=== PATIENT | male | born 1955 | race Caucasian/White ===

== ENCOUNTER 2024-07-06 00:35 | Inpatient (IN) | payer MEDICARE, MEDICAID ==
[~2024-07-06] VITALS: Ht 165.1 cm; Wt 54.4 kg
[2024-07-06 00:37] VITALS: BP_SYST 135; PULSE 69; RESP 19; TEMP 96.9; O2SAT 94
[2024-07-06] MEDS: MORPHINE 4 MG INJ. 4 MG/ML VIAL IVP ONE ×2 (00:57→03:39)
[2024-07-06] MEDS: ONDANSETRON HCL 4 MG/2 ML VIAL IVP ONE (00:58)
[2024-07-06] MEDS: ASPIRIN 325 MG TABLET PO ONE (01:18)
[2024-07-06 01:36] LABS: BASOPHILS # (AUTO) 0.4 K/uL (0.0-0.2); BASOPHILS % (AUTO) 3.4 % (0.0-2.0); EOSINOPHILS # (AUTO) 0.5 K/uL (0.0-0.4); HEMOGLOBIN 15.2 g/dL (14.0-18.0); LYMPHOCYTES # (AUTO) 1.5 K/uL (1.0-5.5); LYMPHOCYTES % (AUTO) 12.6 % (20.5-51.5); MEAN CORPUSCULAR HEMOGLOBIN 32 pg (27-31); MEAN CORPUSCULAR HGB CONC 35 % (32-36); MEAN CORPUSCULAR VOLUME 92 fL (79.0-98.0); MONOCYTES # (AUTO) 0.4 K/uL (0.0-1.0); MONOCYTES % (AUTO) 3.1 % (1.7-9.3); NEUTROPHILS # (AUTO) 9.4 K/uL (1.8-7.7); NEUTROPHILS % (AUTO) 76.9 % (40.0-70.0); PLATELET COUNT (AUTO) 225 K/uL (130-430); RED BLOOD CELL COUNT(AUTO) 4.77 MIL/uL (4.2-6.2); WHITE BLOOD COUNT (AUTO) 12.2 K/uL (4.8-10.8)
[2024-07-06 01:43] LABS: PROTHROMBIN TIME 10.3 SECS (9.5-12.5)
[2024-07-06 01:47] LABS: ANION GAP 9 (5-15); CALCIUM 8.4 mg/dL (8.4-11.0); CARBON DIOXIDE 25 mmol/L (23-29); CHLORIDE 109 mmol/L (98-107); CREATININE 1.02 mg/dL (0.55-1.30); GFR AFRICAN AMERICAN 93 mL/min (>90); GLUCOSE 148 mg/dL (74-106); SODIUM SERUM 143 mmol/L (136-145); UREA NITROGEN, BLOOD 13 mg/dL (8-21)
[2024-07-06 01:53] LABS: GFR NON AFRICAN-AMERICAN 77 mL/min (>90)
[2024-07-06 01:55] LABS: POTASSIUM 2.6 mmol/L (3.5-5.1)
[2024-07-06 02:12] LABS: ALBUMIN 3.5 g/dL (3.4-4.8); BILIRUBIN,DIRECT 0.1 mg/dL (0.0-0.3); TOTAL BILIRUBIN 0.3 mg/dL (0.0-1.0); TOTAL PROTEIN, SERUM 7.1 g/dL (6.4-8.3)
[2024-07-06] MEDS ORDERED: iohexoL 350 mgI/mL, 100 ML INFUS..BTL IV ONE (02:15)
[2024-07-06] MEDS ORDERED: POTASSIUM CHLORIDE 40 MEQ in NS 250 ML IV ONE (02:15)
[2024-07-06] MEDS: NACL 0.9% 1,000 ML IV ONE (02:19)
[2024-07-06] MEDS: FAMOTIDINE PF 20 MG/2 ML VIAL IVP ONE (02:19)
[2024-07-06] MEDS: MAGNESIUM SULFATE 50 ML IV ONE (02:20)
[2024-07-06] MEDS ORDERED: KCL 20 mEq in 100 mL (PREMIX) 200 ML IV ONE (03:10)
[2024-07-06] MEDS: KCL 20 mEq in 100 mL (PREMIX) 100 ML IV ONE ×2 (03:33→05:15)
[2024-07-06] MEDS ORDERED: cefTRIAXone 1 GM VIAL IM ONE (04:45)
[2024-07-06] MEDS ORDERED: AZITHROMYCIN 500 MG/VIAL (ZITHROMAX) IV ONE (05:11)
[2024-07-06] MEDS: cefTRIAXone 1 GM in D5W 50 ML IV ONE (05:11)
[2024-07-06] MEDS: AZITHROMYCIN 500 MG in NS 250 ML IV ONE (05:12)
[2024-07-06] MEDS: PANTOPRAZOLE SODIUM 40 MG/VIAL (PROTONIX) IVP ONE (06:57)
[2024-07-06] MEDS: ONDANSETRON HCL 4 MG/2 ML VIAL IVP PRN (06:57)
[2024-07-06] MEDS: MORPHINE 4 MG INJ. 4 MG/ML VIAL IVP PRN (06:57)
[2024-07-06 07:15] LABS: BILIRUBIN,URINE NEGATIVE (NEGATIVE); BLOOD, URINE NEGATIVE (NEGATIVE); CLARITY/URINE CLEAR (CLEAR); COLOR,URINE YELLOW (YELLOW); GLUCOSE,URINE NEGATIVE (NEGATIVE); KETONES,URINE NEGATIVE (NEGATIVE); LEUKOCYTE ESTERASE ,URINE NEGATIVE (NEGATIVE); NITRITE, URINE POSITIVE (NEGATIVE); PH,URINE 7.5 (5.0-8.0); PROTEIN URINE NEGATIVE (NEGATIVE); UROBILINOGEN,URINE 0.2 (0.2-1.0)
[2024-07-06] MEDS ORDERED: AMLO10TA88 PO (07:49)
[2024-07-06] MEDS ORDERED: CLOP75TA32 PO (07:49)
[2024-07-06] MEDS ORDERED: TAMS0.4C96 PO (07:49)
[2024-07-06] MEDS ORDERED: FINA5TAB11 PO (07:49)
[2024-07-06 08:44] LABS: BACTERIA,URINE FEW /HPF (None Seen); MUCUS,URINE 1+ /LPF (None Seen); RBC,URINE 0-3 /HPF (0-3); WBC,URINE 0-3 /HPF (0-3)
[2024-07-06] MEDS: PANTOPRAZOLE SODIUM 40 MG/VIAL (PROTONIX) IVP SCH (09:25)
[2024-07-06 10:59] LABS: ALBUMIN 3.6 g/dL (3.4-4.8); CALCIUM 8.9 mg/dL (8.4-11.0); CREATININE 0.92 mg/dL (0.55-1.30); POTASSIUM 3.5 mmol/L (3.5-5.1); TOTAL BILIRUBIN 0.5 mg/dL (0.0-1.0); TOTAL PROTEIN, SERUM 7.4 g/dL (6.4-8.3)
[2024-07-06 11:00] VITALS: BP_SYST 133; PULSE 72; RESP 18; TEMP 98.4; O2SAT 98
[2024-07-06] MEDS: FINASTERIDE 5 MG TABLET (PROSCAR) PO ONE (11:30)
[2024-07-06 11:53] VITALS: BP_SYST 142; PULSE 81; RESP 18; TEMP 98.4
[2024-07-06] MEDS ORDERED: MILK OF MAGNESIA 30 ML UDC PO PRN (12:15)
[2024-07-06] MEDS: LR 500 ML IV ONE (12:15)
[2024-07-06] MEDS: SIMETHICONE 80 MG TAB.CHEW PO SCH (14:08)
[2024-07-06] MEDS: DOCUSATE SODIUM 250 MG CAPSULE PO ONE (14:08)
[2024-07-06] MEDS: TAMSULOSIN HCL 0.4 MG CAP PO ONE (14:08)
[2024-07-06] MEDS: amLODIPine BESYLATE 10 MG TABLET PO ONE (14:08)
[2024-07-06] MEDS: CLOPIDOGREL BISULFATE 75 MG TABLET PO ONE (14:08)
[2024-07-06] MEDS: MILK OF MAGNESIA 30 ML UDC PO ONE (14:09)
[2024-07-06] MEDS: ENOXAPARIN SODIUM 40 MG/0.4 ML SYRINGE SUBCUT ONE (14:11)
[2024-07-06 15:10] VITALS: BP_SYST 136; PULSE 69; RESP 16; TEMP 98.1; O2SAT 94
[2024-07-06] MEDS ORDERED: NALOXONE HCL 0.4 MG/ML AMP (NARCAN) IVP PRN ×2 (18:00→18:15)
[2024-07-06] MEDS: HYDROmorphone 1 MG/ML INJ. CARTRIDGE IM PRN (18:13)
[2024-07-06 20:00] VITALS: BP_SYST 144; PULSE 73; RESP 18; TEMP 98.8; O2SAT 92; O2SAT 95
[2024-07-06] MEDS: FAMOTIDINE 20 MG TABLET PO SCH (20:51)
[2024-07-06] MEDS: DOCUSATE SODIUM 250 MG CAPSULE PO SCH (20:51)
[2024-07-06] MEDS: HYDROmorphone 1 MG/ML INJ. CARTRIDGE IVP PRN (22:46)
[2024-07-07 00:05] VITALS: BP_SYST 137; PULSE 73; RESP 18; TEMP 98.4; O2SAT 92; O2SAT 94
[2024-07-07 06:48] LABS: BASOPHILS % (AUTO) 0.2 % (0.0-2.0); EOSINOPHILS # (AUTO) 0.2 K/uL (0.0-0.4); HEMATOCRIT 46.8 % (36-54); HEMOGLOBIN 15.6 g/dL (14.0-18.0); LYMPHOCYTES # (AUTO) 1.1 K/uL (1.0-5.5); LYMPHOCYTES % (AUTO) 6.9 % (20.5-51.5); MEAN CORPUSCULAR HEMOGLOBIN 31 pg (27-31); MEAN CORPUSCULAR HGB CONC 33 % (32-36); MEAN CORPUSCULAR VOLUME 94 fL (79.0-98.0); MONOCYTES # (AUTO) 1.1 K/uL (0.0-1.0); MONOCYTES % (AUTO) 7.1 % (1.7-9.3); NEUTROPHILS # (AUTO) 13.5 K/uL (1.8-7.7); NEUTROPHILS % (AUTO) 84.8 % (40.0-70.0); PLATELET COUNT (AUTO) 205 K/uL (130-430); RED BLOOD CELL COUNT(AUTO) 4.97 MIL/uL (4.2-6.2); RED CELL DISTRIBUTION WIDTH 13.7 % (9.0-15.0); WHITE BLOOD COUNT (AUTO) 15.9 K/uL (4.8-10.8)
[2024-07-07 07:00] VITALS: O2SAT 96
[2024-07-07 08:00] VITALS: BP_SYST 140; PULSE 98; RESP 18; TEMP 98.6; O2SAT 98
[2024-07-07 08:07] LABS: ALBUMIN 2.8 g/dL (3.4-4.8); CALCIUM 8.8 mg/dL (8.4-11.0); CREATININE 0.93 mg/dL (0.55-1.30); FREE T4 (FREE THYROXINE) 1.2 ng/dl (0.8-1.5); POTASSIUM 3.3 mmol/L (3.5-5.1); THYROID STIMULATING HORMONE 0.76 uIu/mL (0.36-3.74); TOTAL BILIRUBIN 1.1 mg/dL (0.0-1.0); TOTAL PROTEIN, SERUM 6.3 g/dL (6.4-8.3)
[2024-07-07] MEDS: ENOXAPARIN SODIUM 40 MG/0.4 ML SYRINGE SUBCUT SCH (10:28)
[2024-07-07] MEDS: TAMSULOSIN HCL 0.4 MG CAP PO SCH (10:29)
[2024-07-07] MEDS: CLOPIDOGREL BISULFATE 75 MG TABLET PO SCH (10:29)
[2024-07-07] MEDS: FINASTERIDE 5 MG TABLET (PROSCAR) PO SCH (10:31)
[2024-07-07] MEDS: amLODIPine BESYLATE 10 MG TABLET PO SCH (10:33)
[2024-07-07 12:50] VITALS: BP_SYST 107; PULSE 68; RESP 18; TEMP 100.1; O2SAT 95
[2024-07-07 16:39] VITALS: BP_SYST 108; PULSE 82; RESP 18; TEMP 99.1; O2SAT 94
[2024-07-07] MEDS ORDERED: NALOXONE HCL 0.4 MG/ML AMP (NARCAN) IVP PRN (18:00)
[2024-07-07] MEDS ORDERED: POTASSIUM CHLORIDE 20 MEQ TABLET.ER PO ONE (18:15)
[2024-07-07] MEDS: PIPERACILLIN/TAZO 3.375 GM in D5W 50 ML IV ONE (18:23)
[2024-07-07] MEDS: POTASSIUM CHLORIDE 20 MEQ TABLET.ER PO ONE (19:41)
[2024-07-07 20:00] VITALS: BP_SYST 114; PULSE 74; RESP 18; TEMP 98.6; O2SAT 95
[2024-07-08] VITALS (7 sets, daily range): BP systolic 107–124; PULSE 74–103; RESP 18; TEMP 98.6–101.1; O2SAT 92–95
[2024-07-08] MEDS: PIPERACILLIN/TAZO 3.375 GM in D5W 50 ML IV SCH (00:20)
[2024-07-08 07:41] LABS: BASOPHILS % (AUTO) 0.2 % (0.0-2.0); EOSINOPHILS # (AUTO) 0.4 K/uL (0.0-0.4); EOSINOPHILS % (AUTO) 2.7 % (0.0-4.0); HEMATOCRIT 44.5 % (36-54); LYMPHOCYTES # (AUTO) 0.9 K/uL (1.0-5.5); LYMPHOCYTES % (AUTO) 5.9 % (20.5-51.5); MEAN CORPUSCULAR HEMOGLOBIN 31 pg (27-31); MEAN CORPUSCULAR HGB CONC 34 % (32-36); MEAN CORPUSCULAR VOLUME 93 fL (79.0-98.0); MONOCYTES # (AUTO) 1.2 K/uL (0.0-1.0); MONOCYTES % (AUTO) 7.7 % (1.7-9.3); NEUTROPHILS # (AUTO) 12.8 K/uL (1.8-7.7); NEUTROPHILS % (AUTO) 83.5 % (40.0-70.0); PLATELET COUNT (AUTO) 209 K/uL (130-430); RED BLOOD CELL COUNT(AUTO) 4.78 MIL/uL (4.2-6.2); RED CELL DISTRIBUTION WIDTH 13.5 % (9.0-15.0); WHITE BLOOD COUNT (AUTO) 15.4 K/uL (4.8-10.8)
[2024-07-08 07:44] LABS: ALBUMIN 2.6 g/dL (3.4-4.8); CREATININE 1.13 mg/dL (0.55-1.30); POTASSIUM 3.5 mmol/L (3.5-5.1); TOTAL BILIRUBIN 1.8 mg/dL (0.0-1.0); TOTAL PROTEIN, SERUM 6.2 g/dL (6.4-8.3)
[2024-07-08] MEDS: HYDROcodone/ACETAMIN 5-325 MG TAB (NORCO/ VICODIN) PO PRN (19:30)
[2024-07-09 00:05] VITALS: BP_SYST 107; PULSE 64; RESP 18; TEMP 99; O2SAT 92
[2024-07-09 08:00] VITALS: BP_SYST 123; PULSE 92; RESP 14; TEMP 99.3; O2SAT 93; O2SAT 97
[2024-07-09 12:39] VITALS: BP_SYST 113; PULSE 95; RESP 18; TEMP 100.8; O2SAT 94
[2024-07-09 16:51] VITALS: BP_SYST 99; PULSE 90; RESP 16; O2SAT 94
[2024-07-09 20:00] VITALS: BP_SYST 119; PULSE 86; RESP 16; TEMP 99.8; O2SAT 95
[2024-07-09] MEDS: guaiFENesin/DEXTROMETHORPHAN 10 ML UDC PO PRN (23:55)
[2024-07-10] VITALS (8 sets, daily range): BP systolic 99–130; PULSE 68–90; RESP 16–20; TEMP 96.6–99.5; O2SAT 80–99
[2024-07-10 08:03] LABS: ALBUMIN 2.1 g/dL (3.4-4.8); CALCIUM 8.5 mg/dL (8.4-11.0); CREATININE 0.95 mg/dL (0.55-1.30); POTASSIUM 3.3 mmol/L (3.5-5.1); TOTAL BILIRUBIN 1.2 mg/dL (0.0-1.0); TOTAL PROTEIN, SERUM 6.3 g/dL (6.4-8.3)
[2024-07-10 08:48] LABS: HEMOGLOBIN 13.9 g/dL (14.0-18.0); WHITE BLOOD COUNT (AUTO) 14.3 K/uL (4.8-10.8)
[2024-07-10 08:51] LABS: BASOPHILS % (AUTO) 0.1 % (0.0-2.0); EOSINOPHILS # (AUTO) 0.5 K/uL (0.0-0.4); EOSINOPHILS % (AUTO) 3.3 % (0.0-4.0); HEMATOCRIT 41.3 % (36-54); LYMPHOCYTES # (AUTO) 1.4 K/uL (1.0-5.5); MEAN CORPUSCULAR HEMOGLOBIN 31 pg (27-31); MEAN CORPUSCULAR HGB CONC 34 % (32-36); MEAN CORPUSCULAR VOLUME 94 fL (79.0-98.0); MONOCYTES # (AUTO) 1.1 K/uL (0.0-1.0); MONOCYTES % (AUTO) 7.8 % (1.7-9.3); NEUTROPHILS # (AUTO) 11.3 K/uL (1.8-7.7); NEUTROPHILS % (AUTO) 78.8 % (40.0-70.0); PLATELET COUNT (AUTO) 252 K/uL (130-430); RED BLOOD CELL COUNT(AUTO) 4.42 MIL/uL (4.2-6.2); RED CELL DISTRIBUTION WIDTH 13.9 % (9.0-15.0)
[2024-07-10] MEDS: IPRATROPIUM/ALBUTEROL SULFATE 3 ML AMPUL.NEB (DUONEB) INH PRN (10:07)
[2024-07-10] MEDS: POTASSIUM CHLORIDE 20 MEQ TABLET.ER PO ONE (13:42)
[2024-07-10] MEDS: IPRATROPIUM/ALBUTEROL SULFATE 3 ML AMPUL.NEB (DUONEB) ONE (16:43)
[2024-07-10] MEDS ORDERED: IPRATROPIUM/ALBUTEROL SULFATE 3 ML AMPUL.NEB (DUONEB) INH PRN (16:45)
[2024-07-10] MEDS: IPRATROPIUM/ALBUTEROL SULFATE 3 ML AMPUL.NEB (DUONEB) INH SCH (19:52)
[2024-07-11] VITALS (9 sets, daily range): BP systolic 99–121; PULSE 64–97; RESP 16–19; TEMP 97.8–99.8; O2SAT 92–95
[2024-07-11 08:01] LABS: CALCIUM 8.4 mg/dL (8.4-11.0); CREATININE 1.01 mg/dL (0.55-1.30); POTASSIUM 3.4 mmol/L (3.5-5.1); TOTAL BILIRUBIN 0.6 mg/dL (0.0-1.0); TOTAL PROTEIN, SERUM 6.2 g/dL (6.4-8.3)
[2024-07-11 08:14] LABS: BASOPHILS % (AUTO) 0.1 % (0.0-2.0); HEMATOCRIT 37.7 % (36-54); HEMOGLOBIN 12.7 g/dL (14.0-18.0); LYMPHOCYTES # (AUTO) 1.4 K/uL (1.0-5.5); LYMPHOCYTES % (AUTO) 9.8 % (20.5-51.5); MONOCYTES # (AUTO) 1.3 K/uL (0.0-1.0); RED BLOOD CELL COUNT(AUTO) 4.05 MIL/uL (4.2-6.2); RED CELL DISTRIBUTION WIDTH 13.9 % (9.0-15.0)
[2024-07-11 08:17] LABS: EOSINOPHILS # (AUTO) 0.3 K/uL (0.0-0.4); EOSINOPHILS % (AUTO) 2.3 % (0.0-4.0); MEAN CORPUSCULAR HEMOGLOBIN 32 pg (27-31); MEAN CORPUSCULAR HGB CONC 34 % (32-36); MEAN CORPUSCULAR VOLUME 93 fL (79.0-98.0); MONOCYTES % (AUTO) 9.4 % (1.7-9.3); NEUTROPHILS # (AUTO) 11.1 K/uL (1.8-7.7); NEUTROPHILS % (AUTO) 78.4 % (40.0-70.0); PLATELET COUNT (AUTO) 277 K/uL (130-430); WHITE BLOOD COUNT (AUTO) 14.2 K/uL (4.8-10.8)
[2024-07-11] MEDS: POTASSIUM CHLORIDE 20 MEQ TABLET.ER PO SCH (08:43)
[2024-07-11] MEDS: POTASSIUM CHLORIDE 20 MEQ TABLET.ER PO ONE (14:07)
[2024-07-11] MEDS ORDERED: ONDANSETRON HCL 4 MG/2 ML VIAL IM PRN (17:30)
[2024-07-12] VITALS (7 sets, daily range): BP systolic 102–117; PULSE 69–101; RESP 16–17; TEMP 97–99.2; O2SAT 93–100
[2024-07-12 07:06] LABS: BASOPHILS % (AUTO) 0.2 % (0.0-2.0); EOSINOPHILS # (AUTO) 0.5 K/uL (0.0-0.4); EOSINOPHILS % (AUTO) 3.4 % (0.0-4.0); HEMATOCRIT 39.6 % (36-54); HEMOGLOBIN 13.1 g/dL (14.0-18.0); LYMPHOCYTES # (AUTO) 1.7 K/uL (1.0-5.5); LYMPHOCYTES % (AUTO) 12.1 % (20.5-51.5); MEAN CORPUSCULAR HEMOGLOBIN 31 pg (27-31); MEAN CORPUSCULAR HGB CONC 33 % (32-36); MEAN CORPUSCULAR VOLUME 94 fL (79.0-98.0); MONOCYTES # (AUTO) 1.2 K/uL (0.0-1.0); MONOCYTES % (AUTO) 8.5 % (1.7-9.3); NEUTROPHILS # (AUTO) 10.5 K/uL (1.8-7.7); NEUTROPHILS % (AUTO) 75.8 % (40.0-70.0); PLATELET COUNT (AUTO) 301 K/uL (130-430); RED BLOOD CELL COUNT(AUTO) 4.23 MIL/uL (4.2-6.2); RED CELL DISTRIBUTION WIDTH 14.5 % (9.0-15.0); WHITE BLOOD COUNT (AUTO) 13.8 K/uL (4.8-10.8)
[2024-07-12 07:53] LABS: ALBUMIN 2.1 g/dL (3.4-4.8); CALCIUM 8.4 mg/dL (8.4-11.0); CREATININE 0.93 mg/dL (0.55-1.30); TOTAL BILIRUBIN 0.6 mg/dL (0.0-1.0); TOTAL PROTEIN, SERUM 6.4 g/dL (6.4-8.3)
[2024-07-12] MEDS: COMMUNICATION ORDER XX ONE (20:00)
[2024-07-13] VITALS (9 sets, daily range): BP systolic 105–117; PULSE 64–85; RESP 16–20; TEMP 97–101.4; O2SAT 94–98
[2024-07-13] MEDS: ACETAMINOPHEN 325 MG TABLET PO PRN (14:57)
[2024-07-14] VITALS (9 sets, daily range): BP systolic 108–125; PULSE 85–96; RESP 16–20; TEMP 97.4–98.1; O2SAT 95–96
[2024-07-14] MEDS: ACETAMINOPHEN 325 MG TABLET PO PRN (01:13)
[2024-07-14 07:29] LABS: BASOPHILS % (AUTO) 0.4 % (0.0-2.0); EOSINOPHILS # (AUTO) 0.2 K/uL (0.0-0.4); HEMATOCRIT 41.8 % (36-54); LYMPHOCYTES # (AUTO) 0.7 K/uL (1.0-5.5); LYMPHOCYTES % (AUTO) 8.7 % (20.5-51.5); MEAN CORPUSCULAR HEMOGLOBIN 31 pg (27-31); MEAN CORPUSCULAR HGB CONC 33 % (32-36); MEAN CORPUSCULAR VOLUME 94 fL (79.0-98.0); MONOCYTES % (AUTO) 13.8 % (1.7-9.3); NEUTROPHILS # (AUTO) 5.6 K/uL (1.8-7.7); NEUTROPHILS % (AUTO) 74.1 % (40.0-70.0); PLATELET COUNT (AUTO) 350 K/uL (130-430); RED BLOOD CELL COUNT(AUTO) 4.46 MIL/uL (4.2-6.2); RED CELL DISTRIBUTION WIDTH 14.4 % (9.0-15.0); WHITE BLOOD COUNT (AUTO) 7.5 K/uL (4.8-10.8)
[2024-07-14 08:26] LABS: ALBUMIN 2.2 g/dL (3.4-4.8); CALCIUM 8.4 mg/dL (8.4-11.0); CREATININE 0.99 mg/dL (0.55-1.30); TOTAL BILIRUBIN 0.3 mg/dL (0.0-1.0); TOTAL PROTEIN, SERUM 6.7 g/dL (6.4-8.3)
[2024-07-14 13:28] LABS: INR 1.1 (0.80-1.20); PROTHROMBIN TIME 11.4 SECS (9.5-12.5)
[2024-07-15] VITALS (8 sets, daily range): BP systolic 108–139; PULSE 85–96; RESP 16–18; TEMP 97.2–98.4; O2SAT 95–99
[2024-07-15 07:49] LABS: BASOPHILS % (AUTO) 0.3 % (0.0-2.0); EOSINOPHILS # (AUTO) 0.3 K/uL (0.0-0.4); EOSINOPHILS % (AUTO) 5.8 % (0.0-4.0); HEMATOCRIT 43.3 % (36-54); HEMOGLOBIN 14.4 g/dL (14.0-18.0); LYMPHOCYTES # (AUTO) 1.4 K/uL (1.0-5.5); LYMPHOCYTES % (AUTO) 23.2 % (20.5-51.5); MEAN CORPUSCULAR HEMOGLOBIN 31 pg (27-31); MEAN CORPUSCULAR HGB CONC 33 % (32-36); MEAN CORPUSCULAR VOLUME 94 fL (79.0-98.0); MONOCYTES # (AUTO) 0.7 K/uL (0.0-1.0); MONOCYTES % (AUTO) 12.5 % (1.7-9.3); NEUTROPHILS # (AUTO) 3.5 K/uL (1.8-7.7); NEUTROPHILS % (AUTO) 58.2 % (40.0-70.0); PLATELET COUNT (AUTO) 379 K/uL (130-430); RED BLOOD CELL COUNT(AUTO) 4.61 MIL/uL (4.2-6.2); RED CELL DISTRIBUTION WIDTH 14.4 % (9.0-15.0); WHITE BLOOD COUNT (AUTO) 5.9 K/uL (4.8-10.8)
[2024-07-15 08:07] LABS: ALBUMIN 2.3 g/dL (3.4-4.8); CALCIUM 8.5 mg/dL (8.4-11.0); CREATININE 0.99 mg/dL (0.55-1.30); POTASSIUM 3.8 mmol/L (3.5-5.1); TOTAL BILIRUBIN 0.3 mg/dL (0.0-1.0); TOTAL PROTEIN, SERUM 6.9 g/dL (6.4-8.3)
[2024-07-15] MEDS ORDERED: iohexoL 240 mgI/mL, 50 ML INFUS..BTL IV ONE (08:44)
[2024-07-15] MEDS ORDERED: NS 1000 ML IV.SOLN IV ONE (09:30)
[2024-07-15] MEDS ORDERED: ROCURONIUM BROMIDE 10 MG/ML (ZEMURON) ONE (09:30)
[2024-07-15] MEDS ORDERED: LIDOCAINE MPF 2% 20 MG/1 ML, 5 ML VIAL INH ONE (09:30)
[2024-07-15] MEDS ORDERED: METOCLOPRAMIDE HCL 10 MG/2 ML VIAL ONE (09:30)
[2024-07-15] MEDS ORDERED: NS IRRIG SOLN 1000 ML IR ONE (09:30)
[2024-07-15] MEDS ORDERED: BUPIVACAINE /PF 0.25% 30 ML VIAL INJ ONE (09:30)
[2024-07-15] MEDS ORDERED: WATER FOR IRRIGATION,STERILE 1,000 ML IRRIG.SOLN IR ONE (09:30)
[2024-07-15] MEDS ORDERED: GLYCOPYRROLATE 0.2 MG/ML VIAL ONE (09:30)
[2024-07-15] MEDS ORDERED: SEVOFLURANE 15 MIN GAS INH ONE (09:30)
[2024-07-15] MEDS ORDERED: NEOSTIGMINE METHYLSULFATE 1 MG/ML, 10 ML VIAL ONE (09:30)
[2024-07-15] MEDS ORDERED: PROPOFOL 200MG/ 20ML VIAL (DIPRIVAN) IV ONE (09:30)
[2024-07-15] MEDS ORDERED: ONDANSETRON HCL 4 MG/2 ML VIAL ONE (09:30)
[2024-07-15] MEDS: fentaNYL CITRATE/PF 100 MCG/2 ML AMP ONE (09:37)
[2024-07-15] MEDS: MIDAZOLAM HCL 2 MG/2 ML VIAL (VERSED) ONE (09:38)
[2024-07-15] MEDS: THROMBIN (BOVINE) 5000 UNITS/ VIAL TP ONE ×2 (11:22→11:25)
[2024-07-15] MEDS: HYDROmorphone 1 MG/ML INJ. CARTRIDGE ONE (12:25)
[2024-07-15 12:27] LABS: HEMATOCRIT 44.2 % (36-54); HEMOGLOBIN 14.2 g/dL (14.0-18.0); MEAN CORPUSCULAR HEMOGLOBIN 31 pg (27-31); MEAN CORPUSCULAR HGB CONC 32 % (32-36); MEAN CORPUSCULAR VOLUME 97 fL (79.0-98.0); PLATELET COUNT (AUTO) 403 K/uL (130-430); RED BLOOD CELL COUNT(AUTO) 4.57 MIL/uL (4.2-6.2); RED CELL DISTRIBUTION WIDTH 15.2 % (9.0-15.0); WHITE BLOOD COUNT (AUTO) 28.5 K/uL (4.8-10.8)
[2024-07-15] MEDS ORDERED: ONDANSETRON HCL 4 MG/2 ML VIAL IVP PRN (12:30)
[2024-07-15] MEDS ORDERED: METOCLOPRAMIDE HCL 10 MG/2 ML VIAL IVP PRN (12:30)
[2024-07-15] MEDS ORDERED: ePHEDrine sulfate 50 MG/ML VIAL IVP PRN (12:30)
[2024-07-15] MEDS ORDERED: HYDROmorphone 1 MG/ML INJ. CARTRIDGE IVP PRN ×2 (12:30)
[2024-07-15] MEDS ORDERED: LABETALOL 100 MG/ 20ML VIAL IVP PRN (12:30)
[2024-07-15] MEDS ORDERED: NALOXONE HCL 0.4 MG/ML AMP (NARCAN) IVP PRN (12:30)
[2024-07-15] MEDS: HYDROmorphone 1 MG/ML INJ. CARTRIDGE IVP PRN ×2 (12:46→20:07)
[2024-07-15 12:48] LABS: ATYPICAL LYMPHOCYTES % 4 % (0-0); BAND % (MANUAL) 9 % (0-6); BASOPHILS % (MANUAL) 0 % (0-2); EOSINOPHILS % (MANUAL) 1 % (0-7); LYMPHOCYTES % (MANUAL) 12 % (20-46); METAMYELOCYTES % 2 % (0-0); MONOCYTES % (MANUAL) 4 % (0-11)
[2024-07-15 12:49] LABS: PLATELET ESTIMATE ADEQUATE (ADEQUATE)
[2024-07-16] VITALS (9 sets, daily range): BP systolic 115–161; PULSE 87–104; RESP 16–18; TEMP 97.7–98; O2SAT 93–99
[2024-07-16 07:22] LABS: BASOPHILS % (AUTO) 0.3 % (0.0-2.0); EOSINOPHILS # (AUTO) 0.1 K/uL (0.0-0.4); EOSINOPHILS % (AUTO) 0.7 % (0.0-4.0); HEMATOCRIT 39.2 % (36-54); HEMOGLOBIN 12.8 g/dL (14.0-18.0); LYMPHOCYTES # (AUTO) 1.2 K/uL (1.0-5.5); LYMPHOCYTES % (AUTO) 11.7 % (20.5-51.5); MEAN CORPUSCULAR HEMOGLOBIN 31 pg (27-31); MEAN CORPUSCULAR HGB CONC 33 % (32-36); MEAN CORPUSCULAR VOLUME 95 fL (79.0-98.0); MONOCYTES # (AUTO) 0.7 K/uL (0.0-1.0); MONOCYTES % (AUTO) 6.9 % (1.7-9.3); NEUTROPHILS # (AUTO) 8.4 K/uL (1.8-7.7); NEUTROPHILS % (AUTO) 80.4 % (40.0-70.0); PLATELET COUNT (AUTO) 362 K/uL (130-430); RED BLOOD CELL COUNT(AUTO) 4.14 MIL/uL (4.2-6.2); RED CELL DISTRIBUTION WIDTH 14.5 % (9.0-15.0); WHITE BLOOD COUNT (AUTO) 10.5 K/uL (4.8-10.8)
[2024-07-16 07:43] LABS: ALBUMIN 2.2 g/dL (3.4-4.8); CALCIUM 8.1 mg/dL (8.4-11.0); CREATININE 0.81 mg/dL (0.55-1.30); POTASSIUM 4.3 mmol/L (3.5-5.1); TOTAL BILIRUBIN 0.4 mg/dL (0.0-1.0); TOTAL PROTEIN, SERUM 6.3 g/dL (6.4-8.3)
[2024-07-16 10:13] LABS: BASOPHILS % (AUTO) 0.2 % (0.0-2.0); EOSINOPHILS # (AUTO) 0.2 K/uL (0.0-0.4); EOSINOPHILS % (AUTO) 1.6 % (0.0-4.0); HEMATOCRIT 38.1 % (36-54); LYMPHOCYTES # (AUTO) 1.1 K/uL (1.0-5.5); MEAN CORPUSCULAR HEMOGLOBIN 32 pg (27-31); MEAN CORPUSCULAR HGB CONC 34 % (32-36); MEAN CORPUSCULAR VOLUME 93 fL (79.0-98.0); MONOCYTES # (AUTO) 0.6 K/uL (0.0-1.0); MONOCYTES % (AUTO) 6.3 % (1.7-9.3); NEUTROPHILS # (AUTO) 8.4 K/uL (1.8-7.7); NEUTROPHILS % (AUTO) 80.9 % (40.0-70.0); PLATELET COUNT (AUTO) 320 K/uL (130-430); RED BLOOD CELL COUNT(AUTO) 4.11 MIL/uL (4.2-6.2); RED CELL DISTRIBUTION WIDTH 14.5 % (9.0-15.0); WHITE BLOOD COUNT (AUTO) 10.4 K/uL (4.8-10.8)
[2024-07-16] MEDS ORDERED: QUEtiapine FUMARATE 25 MG TABLET PO PRN (16:30)
[2024-07-16] MEDS: HYDROmorphone 1 MG/ML INJ. CARTRIDGE IVP PRN (19:00)
[2024-07-17] VITALS (11 sets, daily range): BP systolic 110–132; PULSE 74–94; RESP 16–18; TEMP 97–98.5; O2SAT 93–98
[2024-07-17 07:51] LABS: BASOPHILS % (AUTO) 0.3 % (0.0-2.0); EOSINOPHILS # (AUTO) 0.6 K/uL (0.0-0.4); EOSINOPHILS % (AUTO) 5.5 % (0.0-4.0); HEMATOCRIT 36.3 % (36-54); HEMOGLOBIN 12.2 g/dL (14.0-18.0); LYMPHOCYTES # (AUTO) 1.4 K/uL (1.0-5.5); LYMPHOCYTES % (AUTO) 13.7 % (20.5-51.5); MEAN CORPUSCULAR HEMOGLOBIN 31 pg (27-31); MEAN CORPUSCULAR HGB CONC 34 % (32-36); MEAN CORPUSCULAR VOLUME 93 fL (79.0-98.0); MONOCYTES # (AUTO) 0.7 K/uL (0.0-1.0); MONOCYTES % (AUTO) 6.8 % (1.7-9.3); NEUTROPHILS # (AUTO) 7.8 K/uL (1.8-7.7); NEUTROPHILS % (AUTO) 73.7 % (40.0-70.0); PLATELET COUNT (AUTO) 305 K/uL (130-430); RED BLOOD CELL COUNT(AUTO) 3.91 MIL/uL (4.2-6.2); RED CELL DISTRIBUTION WIDTH 14.1 % (9.0-15.0); WHITE BLOOD COUNT (AUTO) 10.5 K/uL (4.8-10.8)
[2024-07-17 08:12] LABS: CALCIUM 8.1 mg/dL (8.4-11.0); CREATININE 0.82 mg/dL (0.55-1.30); POTASSIUM 3.6 mmol/L (3.5-5.1)
[2024-07-17] MEDS: HYDROcodone/ACETAMIN 10-325 MG TAB PO PRN (08:38)
[2024-07-17] MEDS: DOCUSATE SODIUM 100 MG CAPSULE PO SCH (20:31)
[2024-07-18] VITALS (8 sets, daily range): BP systolic 104–134; PULSE 73–100; RESP 15–24; TEMP 97.3–99.3; O2SAT 93–98
[2024-07-18 07:58] LABS: BASOPHILS % (AUTO) 0.3 % (0.0-2.0); EOSINOPHILS # (AUTO) 0.6 K/uL (0.0-0.4); EOSINOPHILS % (AUTO) 6.3 % (0.0-4.0); HEMATOCRIT 34.7 % (36-54); HEMOGLOBIN 11.7 g/dL (14.0-18.0); LYMPHOCYTES # (AUTO) 1.3 K/uL (1.0-5.5); MEAN CORPUSCULAR HEMOGLOBIN 31 pg (27-31); MEAN CORPUSCULAR HGB CONC 34 % (32-36); MEAN CORPUSCULAR VOLUME 92 fL (79.0-98.0); MONOCYTES # (AUTO) 0.6 K/uL (0.0-1.0); MONOCYTES % (AUTO) 6.4 % (1.7-9.3); NEUTROPHILS # (AUTO) 6.6 K/uL (1.8-7.7); PLATELET COUNT (AUTO) 338 K/uL (130-430); RED BLOOD CELL COUNT(AUTO) 3.75 MIL/uL (4.2-6.2); RED CELL DISTRIBUTION WIDTH 14.1 % (9.0-15.0)
[2024-07-18 08:39] LABS: CALCIUM 8.1 mg/dL (8.4-11.0); CREATININE 0.79 mg/dL (0.55-1.30); POTASSIUM 3.5 mmol/L (3.5-5.1); TOTAL BILIRUBIN 0.5 mg/dL (0.0-1.0); TOTAL PROTEIN, SERUM 6.1 g/dL (6.4-8.3)
[2024-07-18] MEDS ORDERED: HYDR-3927 PO (12:48)
[2024-07-18] MEDS ORDERED: FAMO20TA8 PO (12:48)
[2024-07-18] MEDS ORDERED: DOCU-144 PO (12:48)
[2024-07-18] MEDS ORDERED: Potassium Chloride PO (12:48)
[2024-07-18] MEDS ORDERED: IPRA3AMP9 INH (12:48)
[2024-07-18] MEDS ORDERED: SER25 PO (12:48)
[2024-07-18] MEDS: CLOPIDOGREL BISULFATE 75 MG TABLET PO ONE (13:36)
[2024-07-19] VITALS (7 sets, daily range): BP systolic 108–111; PULSE 81–90; RESP 16–20; TEMP 97.9–98.4; O2SAT 95–98
[2024-07-19] MEDS: traMADol HCL HCL 50 MG TABLET (ULTRAM) PO PRN (04:26)
[2024-07-19] MEDS: CLOPIDOGREL BISULFATE 75 MG TABLET PO SCH (10:21)
== END 2024-07-19 16:26 | DRG 417 ==
LOC: SED 00:35 → STU 05:26 → SMU 07-11 09:15 → STU 07-15 18:56 → SMU 07-18 22:51
PROVIDERS: ADMIT Internal Medicine; ATTEND Internal Medicine
PROC: 0FT44ZZ Resection of Gallbladder, Percutaneous Endoscopic Approach (ICD-10-PCS; principal; 2024-07-15 09:32)
DX: K81.0 Acute cholecystitis (principal); E43 Unspecified severe protein-calorie malnutrition; J98.11 Atelectasis; N30.00 Acute cystitis without hematuria; E87.6 Hypokalemia; E78.5 Hyperlipidemia, unspecified; I10 Essential (primary) hypertension; N40.0 Benign prostatic hyperplasia without lower urinary tract symptoms; Z79.01 Long term (current) use of anticoagulants; Z79.02 Long term (current) use of antithrombotics/antiplatelets; Z86.73 Personal history of transient ischemic attack (TIA), and cerebral infarction without residual deficits; Z79.899 Other long term (current) drug therapy; Z87.891 Personal history of nicotine dependence; Z88.8 Allergy status to other drugs, medicaments and biological substances; Z68.20 Body mass index [BMI] 20.0-20.9, adult
CPT/HCPCS: 36415; 71045; 71275; 72191; 74018; 74175; 74181; 76700; 78226; 80048; 80053; 80076; 81000; 81001; 81015; 83690; 83880; 84153; 84439; 84443; 84484; 85007; 85025; 85027; 85610; 85730; 86886; 86900; 86901; 87040; 87081; 87086; 88304; 93005; 93306; 94070; 94640; 94760; 97110-GP; 97116-GP; 97530-GP; 99291; A9537; C1727; G0378; J0456; J0696; J1170; J1650; J1956; J2270; J2405; J2470; J2543; J2704; J2710; J2765; J3010; J3465; J3475; J3480; J3490; J7030; J7050; J7060; Q9966; Q9967